=== PATIENT | female | born 1985 | race Caucasian/White ===

== ENCOUNTER 2019-05-03 12:15 | Emergency (ER) | payer MEDICAID ==
[~2019-05-03] VITALS: Wt 80.0 kg
[~2019-05-03 12:15] MED LIST: CETI10CA PO; PRED20TA PO
[2019-05-03 12:39] VITALS: BP 126/74; PULSE 78; RESP 18
== END 2019-05-03 13:30 | disposition home or self-care (01) ==
LOC: E/R 12:15
DX: R21 Rash and other nonspecific skin eruption (principal)
CPT/HCPCS: 99283